=== PATIENT | female | born 1955 | race Caucasian/White ===

== ENCOUNTER 2016-10-31 13:27 | Emergency (ER) | payer MEDICARE, OTHER ==
[2016-10-31] MEDS ORDERED: Ketorolac INJ* 30 MG/ML 1 ML VIAL IV ONE (14:35)
[2016-10-31] MEDS ORDERED: NS 0.9% 1000 ML* 1,000 ML IV ONE (14:35)
[2016-10-31 14:37] LABS: Hematocrit 42 % (35-47); Hemoglobin 14.2 g/dl (12.0-16.0); Mean Corpuscular HGB Conc 34 g/dl (31-36); Mean Corpuscular Hemoglobin 32 pg (27-31); Mean Corpuscular Volume 95 fL (80-97); Mean Platelet Volume 8 um3 (7.4-10.4); Red Blood Count 4.43 10^6/ul (4.0-5.4); Red Cell Distribution Width 13 % (10.5-15); White Blood Count 7.4 10^3/ul (3.5-10.8)
[2016-10-31 14:49] LABS: Budding Yeast Present (Absent)
[2016-10-31 14:52] LABS: Albumin 3.9 g/dL (3.2-5.2); Calcium 9.1 mg/dL (8.6-10.3); EGFR African American 128.7 (>60); Potassium 3.4 mmol/L (3.5-5.0); Total Bilirubin 0.2 mg/dL (0.2-1.0); Total Protein 6.9 g/dL (6.4-8.9)
--- NOTE | 2016-10-31 15:05 | ED ---
Back Pain - HPI Summary HPI Summary: Patient was diagnosed with an UTI yesterday at [facility] after three days of urinary frequency and pain. She was placed on macrobid and pyridium, and given tramadol for pain. She has not had any relief with any of the medication and was referred here by her PCP if her pain worsen. Today she has right flank pain without fever, chills, abdominal pain, CP or SOB. She denies N/V/D or constipation. - History of Current Complaint Chief Complaint: EDFlankPain Stated Complaint: RT SIDE FLANK PAIN Time Seen by Provider: 10/31/16 13:52 Hx Obtained From: Patient, Family/Lip And Gate Builder Onset/Duration: Gradual Onset Onset/Duration: Started Days Ago, Atraumatic, Still Present Timing: Constant, Lasting Days Back Pain Location: Is Discrete @ - suprapubic and right flank Severity Initially: Mild Severity Currently: Severe Pain Intensity: 10 Character: Sharp, Aching Aggravating Symptom(s): Nothing Alleviating Symptom(s): Nothing Associated Signs And Symptoms: Positive: Flank Pain. Negative: Bladder Incontinence, Bowel Incontinence - Allergies/Home Medications Allergies/Adverse Reactions: Allergies Allergy/AdvReac Type Severity Reaction Status Date / Time No Known Allergies Allergy Verified 12/13/14 05:18 PMH/Surg Hx/FS Hx/Imm Hx Previously Healthy: Yes Endocrine/Hematology History: Denies: Hx Diabetes Cardiovascular History: Denies: Hx Congestive Heart Failure, Hx Hypertension History: Denies: Hx Renal Disease - Surgical History Surgery Procedure, Year, and Place: RT OVARY REMOVED/DOMINGO Infectious Disease History: No Infectious Disease History: Denies: Traveled Outside the [place] in Last 30 Days - Family History Known Family History: Positive: None - Social History Occupation: Employed Part-time Lives: With Family Alcohol Use: Occasionally Substance Use Type: Reports: None Smoking Status (MU): Former Smoker Review of Systems Negative: Fever, Chills Negative: Abdominal Pain, Vomiting, Diarrhea, Nausea Positive: dysuria, frequency, flank pain, urgency. Negative: hematuria, incontinence All Other Systems Reviewed And Are Negative: Yes Physical Exam Triage Information Reviewed: Yes Vital Signs On Initial Exam: Initial Vitals Temp Pulse Resp BP Pulse Ox 98.5 F 87 16 130/79 99 10/31/16 13:31 10/31/16 13:31 10/31/16 13:31 10/31/16 13:31 10/31/16 13:31 Vital Signs Reviewed: Yes Appearance: Positive: Well-Appearing, Well-Nourished, Pain Distress Skin: Positive: Warm, Skin Color Reflects Adequate Perfusion, Dry, Soft Head/Face: Positive: Normal Head/Face Inspection Eyes: Positive: EOMI, GEORGE, Conjunctiva Clear ENT: Positive: Hearing grossly normal Neck: Positive: Supple, Nontender, No Lymphadenopathy Respiratory/Lung Sounds: Positive: Clear to Auscultation, Breath Sounds Present Cardiovascular: Positive: RRR Abdomen Description: Positive: Nontender, Soft, CVA Tenderness (R). Negative: CVA Tenderness (L), Distended, Guarding, McBurney's Point Tenderness Bowel Sounds: Positive: Present Musculoskeletal: Negative: Edema Left, Edema Right Neurological: Positive: Sensory/Motor Intact, Alert, Oriented to Person Place, Time, NV Bundle Intact Distally, Normal Gait Psychiatric: Positive: Affect/Mood Appropriate AVPU Assessment: Alert - [place] Coma Scale Coma Scale Total: 15 Diagnostics - Vital Signs Vital Signs Temp Pulse Resp BP Pulse Ox 10/31/16 13:31 98.5 F 87 16 130/79 99 - Laboratory Lab Results: Lab Results 10/31/16 10/31/16 10/31/16 Range/Units 14:18 14:18 14:19 WBC 7.4 (3.5-10.8) 10^3/ul RBC 4.43 (4.0-5.4) 10^6/ul Hgb 14.2 (12.0-16.0) g/dl Hct 42 (35-47) % MCV 95 (80-97) fL MCH 32 H (27-31) pg MCHC 34 (31-36) g/dl RDW 13 (10.5-15) % Plt Count 212 (150-450) 10^3/ul MPV 8 (7.4-10.4) um3 Neut % (Auto) 68.0 (38-83) % Lymph % (Auto) 23.1 L (25-47) % Larue % (Auto) 5.0 (1-9) % Eos % (Auto) 2.7 (0-6) % Baso % (Auto) 1.2 (0-2) % Absolute Neuts (auto) 5.0 (1.5-7.7) 10^3/ul Absolute Lymphs (auto) 1.7 (1.0-4.8) 10^3/ul Absolute Monos (auto) 0.4 (0-0.8) 10^3/ul Absolute Eos (auto) 0.2 (0-0.6) 10^3/ul Absolute Basos (auto) 0.1 (0-0.2) 10^3/ul Absolute Nucleated RBC 0 10^3/ul Nucleated RBC % 0 Sodium 138 (133-145) mmol/L Potassium 3.4 L (3.5-5.0) mmol/L Chloride 105 (101-111) mmol/L Carbon Dioxide 27 (22-32) mmol/L Anion Gap 6 (2-11) mmol/L BUN 11 (6-24) mg/dL Creatinine 0.61 (0.51-0.95) mg/dL Est GFR ( Amer) 128.7 (>60) Est GFR (Non-Af Amer) 100.0 (>60) BUN/Creatinine Ratio 18.0 (8-20) Glucose 112 H (70-100) mg/dL Calcium 9.1 (8.6-10.3) mg/dL Total Bilirubin 0.20 (0.2-1.0) mg/dL AST 22 (13-39) U/L ALT 14 (7-52) U/L Alkaline Phosphatase 69 (34-104) U/L Total Protein 6.9 (6.4-8.9) g/dL Albumin 3.9 (3.2-5.2) g/dL Globulin 3.0 (2-4) g/dL Albumin/Globulin Ratio 1.3 (1-3) Urine Color [place] Urine Appearance Clear Urine pH (5-9) Ur Specific [place] 1.004 L (1.010-1.030) Urine Protein (Negative) Urine Ketones (Negative) Urine Blood (Negative) Urine Nitrate (Negative) Urine Bilirubin (Negative) Urine Urobilinogen (Negative) Ur Leukocyte Esterase (Negative) Urine WBC (Auto) Trace(0-5/hpf) (Absent) Urine RBC (Auto) Trace(0-2/hpf) (Absent) Ur Squamous Epith Cells Present H (Absent) Urine Yeast Present H (Absent) Urine Glucose (Negative) Urine Ascorbic Acid (Negative) Result Diagrams: 10/31/16 14:18 10/31/16 14:18 Lab Statement: Any lab studies that have been ordered have been reviewed, and results considered in the medical decision making process. - Ultrasound No standard instances Ultrasound Interpretation: No Acute Changes Ultrasound Interpretation Completed By: Radiologist Back Pain Course/Dx - Diagnoses Differential Diagnosis/HQI/PQRI: Positive: Aneurysm, Arthritis, Herniated Disc, Neoplasm, Renal Colic, Septic Arthritis, Strain, Sprain Provider Diagnoses: Back pain Discharge - Discharge Plan Condition: Stable Disposition: HOME Prescriptions: Ketorolac TAB * [Toradol TAB *] 10 mg PO Q6H #16 tab Patient Education Materials: Back Pain (ED) Referrals: Heath Gutierrez MD [Primary Care Provider] - Additional Instructions: Please take the medication as prescribed and apply heat to your back. Take the other medication prescribed by Kate as well. Follow-up with your primary care provider for re-evaluation in 3-5 days if symptoms do not improve. Return to the emergency department if symptoms worsen.
--- NOTE | 2016-10-31 15:32 | RAD ---
Indication: Flank pain. Real-time sonography of the right kidney was performed. The right kidney measures 10.4 x 3.8 x 4.2 cm with no hydronephrosis. IMPRESSION: Unremarkable right renal ultrasound.
[2016-10-31 16:12] VITALS: BP 120/70
== END 2016-10-31 16:11 | disposition home or self-care (01) ==
LOC: ED 13:27
DX: M54.9 Dorsalgia, unspecified (principal); R10.84 Generalized abdominal pain; Z87.891 Personal history of nicotine dependence; R30.0 Dysuria
CPT/HCPCS: 36415; 76775; 80053; 81003; 81015; 85025; 96374; 99282; J1885

== ENCOUNTER 2017-06-05 08:20 | Day surgery (SDC) | payer MEDICARE, BC ==
[~2017-06-05 08:20] MED LIST: Buffered Lidocaine 0.9% SYRIN* 5 ML/SYR SYRINGE INTRADERM ONE
[2017-06-05] MEDS ORDERED: ceFAZolin 2 GM PREMIX (*) 2 GM/50 ML BAG IVPB ONE (08:31)
[2017-06-05] MEDS ORDERED: Lidocaine 1% INJ* 10 MG/ML 30 ML SDV ONE (09:15)
[2017-06-05] MEDS ORDERED: Bupivacaine 0.5% SDV PF* 10-30ML VIAL ONE (09:15)
[2017-06-05] MEDS ORDERED: Dexamethasone IV* 4 MG/ML 1 ML (4 MG) ONE (09:15)
[2017-06-05] MEDS ORDERED: Naloxone* 0.4 MG/ML 1 ML VIAL IV PRN (09:24)
[2017-06-05] MEDS ORDERED: fentaNYL* 50 MCG/ML 2 ML VIAL (100 MCG VIAL) ONE (09:44)
[2017-06-05] MEDS ORDERED: Midazolam* 1 MG/ML 2 ML VIAL (2 MG) ONE ×3 (09:44→10:10)
[2017-06-05] MEDS ORDERED: Propofol* 10 MG/ML 20 ML BTL IV PUSH ONE ×2 (09:48→10:21)
[2017-06-05] MEDS ORDERED: Lidocaine 2% PF * 5 ML VIAL ONE (09:53)
[2017-06-05] MEDS ORDERED: Ibuprofen TAB* 400 MG ONE (11:11)
[2017-06-05] MEDS ORDERED: HYDROcodone/ACETAMIN 5-325 MG* 1 TAB ONE (11:11)
[2017-06-05 11:33] VITALS: BP 133/42
--- NOTE | 2017-06-06 02:19 | OP ---
DATE OF OPERATION: 06/05/17 - [facility] DATE OF : 57 SURGEON: Del Barros DPM MANAGER PUBLIC: None. ANESTHESIA: MAC with local. 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 POST-OP DIAGNOSIS: Recurrent painful bunion with hallux limitus right foot. OPERATIVE PROCEDURE: Bunionectomy, first metatarsal osteotomy and phalangeal osteotomy of the right foot. PATHOLOGY: Degenerative bone. HEMOSTASIS: Pneumatic ankle tourniquet. ESTIMATED BLOOD LOSS: Less than 10 cc. MATERIALS: Two of the 3.0 mm cannulated screws. INDICATIONS: The patient with previous bunion procedure a couple of years ago on the right foot, which she continues to have pain and deformity of the right great toe joint. She cannot wear closed shoes or walk without pain. She opts for surgery at this time to attempt to decrease pain and improve function. DESCRIPTION OF PROCEDURE: The patient was brought to the operating room and placed on the operating room table in a supine position. The anesthesia department administered IV sedation. A peripheral nerve block was performed about the right foot with a 1:1 mixture of 1% lidocaine plain and 0.5% Marcaine plain. The right foot was prepped and draped in the usual fashion. The right foot was then examined and the pneumatic ankle tourniquet was inflated to 250 mmHg over a well-padded right ankle. Attention was directed to the dorsomedial aspect of the right great toe joint where there is a previous surgical scar and this was used to make another incision slightly longer than the original incision. The incision was deepened through subcutaneous tissues and tissue planes were re-established with care being taken to retract neurovascular structures and cauterize superficial bleeders as needed. Dissection was carried down through the deep fascia where an inverted L capsular and periosteal incision was made. This was reflected off the underlying osseous surface to expose the joint. There was noted to be mild hypertrophy remaining in the medial first metatarsal head. The other cartilage surface was generally intact without any significant evidence of erosions or defect. There was still some lateral contracture and so dissection was carried into the first metatarsal space where there was some fibrosis and scarring noted and the soft tissue release was performed transecting the conjoint tendon of the adductor hallucis, a portion of the lateral fibular sesamoid ligament, a portion of the lateral capsule. A McGlamry elevator was needed to free the plantar lateral adhesions. This being done, the lateral contracture was complete except the extensor hallucis brevis tendon, it was also identified and transected. Next a Chevron type osteotomy was performed in the first metatarsal head with the apex just dorsal and proximal to the geometric center and the plantar wing was cut from medial to lateral in a plantar lateral orientation. The dorsal wing was then cut and the capital fragment was transposed laterally to desired corrected position and temporary fixation was achieved with a smooth wire. The correction was assessed with C-arm and using standard technique, a 3.0 mm cannulated Bryanna screw was placed across the osteotomy site with care being taken to ensure the tip of the screw did not penetrate the joint. Temporary fixation was removed and the osteotomy was inspected and found to be solid with no detectable motion or gaping. The fixation and positioning was assessed with a C-arm. Still some lateral deviation within the proximal phalanx. The sagittal saw was used to resect the redundant medial shaft of bone off the first metatarsal and the power myriam was used to smooth off rough edges. Dissection was carried further dorsomedially after the surgical site was flushed with copious amounts of normal sterile saline. This allowed for exposure of the proximal phalanx and an angular phalangeal osteotomy was performed from distal medial to the more proximal lateral. The wedge of the bone was resected. The osteotomy was reduced. Temporary fixation was achieved with a wire from the screw site and the position was checked with C-arm. Next using standard technique, a 3.0 mm cannulated Bryanna screw was placed across the osteotomy site. Temporary fixation was removed. The correction and fixation was assessed with a C-arm. The osteotomy was inspected, found to be solid with no detectable motion or gaping. The screw was 2 fingers tight as well as the screw in the first metatarsal head. The surgical site was flushed with copious amounts of normal sterile saline. The periosteal and capsular tissues were reapproximated and secured with 2-0 Vicryl. Subcutaneous tissues were reapproximated and secured with 4-0 Vicryl and the skin was reapproximated and secured with 5-0 nylon. 12 mg of dexamethasone phosphate was infiltrated about the surgical site and the incision was dressed with Xeroform gauze and a light compressive dressing consistent with 4x4 gauze, Sravan, and light Coban wrap. The pneumatic ankle tourniquet was deflated about the right ankle and a prompt hyperemic response was noted to all 5 digits of the patient's right foot. Having appeared to have tolerated the procedure and anesthesia well, the patient was transported via cart from the operating room to Recovery in satisfactory condition with capillary refill less than 3 seconds to all digits of the right foot. [id number]/[facility] #: [id number] [facility]ITALMeri
== END 2017-06-05 11:50 | disposition home or self-care (01) ==
LOC: OREAST 08:20
PROVIDERS: ATTEND Podiatrist Foot Surgery
DX: Z01.818 Encounter for other preprocedural examination (principal); M21.611 Bunion of right foot; M20.5X1 Other deformities of toe(s) (acquired), right foot; F32.9 Major depressive disorder, single episode, unspecified; F41.9 Anxiety disorder, unspecified; M54.5 Low back pain; G89.29 Other chronic pain; R74.8 Abnormal levels of other serum enzymes
CPT/HCPCS: 76000; 88304; 88311; A9270-GY; C1713; C1776; J0690; J1100; J2250; J2704; J3010